=== PATIENT | female | born 1955 | race Caucasian/White ===

== ENCOUNTER 2021-12-27 19:24 | Emergency (ER) | payer OTHER ==
--- OUTSIDE RECORDS SUMMARY | 2021-12-27 19:29 | XMS REPORT | Continuity of Care Document ---
:1955 Author Organization [facility] t Address [address] [place] [address] Care Team Providers Name Role Phone [phone] Primary Care Physician Unavailable SKIP DAVID Attending Clinician Unavailable Skip David MD Attending Clinician KAT VEGA Attending Clinician Unavailable Payers Payer Name Policy Type Policy Number Effective Date Expiration Date S [place] [employer] MANAGED [id number] 2021 MEDICARE PPO-CHENG 00:00:00 [employer]ET[employer] MEDICARE PPO [id number] 2021 00:00:00 Problems Condition Condition Condition Status Onset Resolution Last Treating Co mments Source Name Details Category Date Date Treatment Clinician Date HTN HTN Disease Active 2014-05 [facility] (hypertens (hypertens 06-23 it y of ion) ion) 00:00: [place] 00 [facility] Anxiety Anxiety Disease Active 2014-05 Univers 06-23 ity of 00:00: [place] 00 [facility] Hyperchole Hyperchole Disease Active 2014-05 U nivers sterolemia sterolemia 11 it y of 00:00: [place] 00 [facility] Allergies, Adverse Reactions, Alerts Allergy Allergy Status Severity Reaction(s) Onset Inactive Treating Comm ents Source Name Type Date Date Clinician Hydrocod Propensi Active Rash [place] Univ ers one ty to 2-02 ity of Bitartra adverse 00:00: [place] te reaction 00 Medical s [facility] HYDROCOD DRUG Active Rash Univers ONE INGREDI 06-14 ity of BITARTRA 00:00: [place] TE 00 Medical Branch ESCITALO DRUG Active Palpitations 2014-05 Un terrence PRAM INGREDI 2-11 ity of OXALATE 00:00: [place] 00 [facility] Escitalo Propensi Active Palpitations 2014-05 Univers pram ty to 2-11 ity of Oxalate adverse 00:00: [place] reaction 00 Medical s [facility] Social History Social Habit Start Date Stop Date Quantity Comments Source Exposure to 2021-09-04 2021-09-14 Not sure [facility] SARS-CoV-2 (event) 00:00:00 07:48:00 Medica l Branch Alcohol intake 2021-09-14 2021-09-14 0 /d [facility] 00:00:00 00:00:00 Medical Branch Tobacco use and 2015-04-25 2015-04-25 Never used [facility] exposure 00:00:00 00:00:00 Medical Branch Sex [birth year] [facility] 00:00:00 00:00:00 Medical Branch Smoking Status Start Date Stop Date Source Never smoker [facility] Medications Ordered Filled Start Stop Current Ordering Indication Dosage Frequency Signature Comments Components Source Medication Medication Date Date Medication? Clinician (SIG) Name Name carvedilol Yes 25mg Take 25 mg U nivers (COREG) 25 4-07 by mouth 2 ity of mg tablet 08:36: (two) [place] 29 times Medical daily with Branch meals. valsartan Yes 320mg Take 320 Uni vers (DIOVAN) 4-07 mg by ity of 320 mg 08:36: mouth [place] tablet 29 daily. Medical Branch SERTraline Yes [id number] 50mg Take 1 U nivers 50 mg 4-07 tablet by ity of tablet 00:00: mouth [place] 00 daily. Medical Branch amLODIPine Yes 2.5mg Take 2.5 Un terrence 2.5 mg 1-03 mg by ity of tablet 00:00: mouth [place] 00 daily. Medical Branch atorvastati Yes 10mg Take 10 mg Univers n 10 mg 8-05 by mouth ity of tablet 00:00: daily. 00 Medical Branch Immunizations Ordered Filled Immunization Date Status Comments Sourc e Immunization Name Name Influenza High Dose 2021-02-22 Completed Unive rsity of 00:00:00 [facility] SARS-COV-2 COVID-19 2020-07-16 Completed Unive rsity of MODERNA VACCINE 00:00:00 [facility] SARS-COV-2 COVID-19 2020-06-18 Completed Unive rsity of MODERNA VACCINE 00:00:00 [facility] Influenza High Dose 2020-02-17 Completed Unive rsity of 00:00:00 [facility] Influenza High Dose 2020-02-12 Completed Unive rsity of Quad 00:00:00 [facility] Influenza Virus 2019-02-17 Completed Universit y of Vaccine [place] .5 mL 00:00:00 [facility] 6+ MO [place] Influenza Virus 2017-02-18 Completed Universit y of Vaccine 00:00:00 [facility] Vital Signs Vital Name Observation Time Observation Value Comments Source Systolic blood 2021-09-14 13:10:00 160 mm[Hg] Univer sity of pressure [facility] Diastolic blood 2021-09-14 13:10:00 91 mm[Hg] Unive rsity of pressure [facility] Heart rate 2021-09-14 13:10:00 58 /min [facility] Respiratory rate 2021-09-14 13:10:00 18 /[facility] Body height 2021-09-14 12:54:00 165.1 cm [facility] Body weight 2021-09-14 12:54:00 74.345 kg [facility] BMI 2021-09-14 12:54:00 27.27 kg/m2 [facility] Procedures This patient has no known procedures. Encounters Start End Encounter Admission Attending Care Care Encounter Source Date/Time Date/Time Type Type Clinicians Facility Department ID 2021-09-14 2021-09-14 Outpatient R [facility] [id number] Univers 08:23:47 23:59:00 SKIP teran [facility] 2021-09-14 2021-09-14 Office ZAIDA David [id number] Univers 08:00:00 08:54:37 Visit Skip [facility] [id number] it y of [place] [id number] Roman as AIMEE?BLEA [id number] Nd jennifer [address] MEDICAL OFFICE BUILDING 2021-06-08 2021-06-08 Outpatient TRINIDAD VEGA MDA MDA [id number] 11:23:08 13:48:45 KATSE Toño vu 2021-06-08 2021-06-08 Outpatient TRINIDAD HERRING MDA [id number] 10:11:29 10:11:29 Toño vu Results This patient has no known results.
[2021-12-27 20:08] LABS: Absolute Lymphocytes (CBC) 2.6 K/uL (0.7-4.9); Lymphocytes % 40.5 % (15.3-44.8); MCV 92.4 fL (80-100); MPV 10.2 fL (7.6-11.3); RBC Red Blood Cell Count 4.44 M/uL (3.86-4.86)
--- NOTE | 2021-12-27 20:11 | RAD REPORT ---
EXAM DESCRIPTION: CT - Head Brain Wo Cont - 12/27/2021 8:03 pm CLINICAL HISTORY: headache, elevated blood pressure COMPARISON: No comparisons TECHNIQUE: Axial 5 mm thick images of the head were obtained without IV contrast. All CT scans are performed using dose optimization technique as appropriate and may include automated exposure control or mA/KV adjustment according to patient size. FINDINGS: No intracranial hemorrhage, mass, edema or shift of mid-line structures. No acute infarcti on changes seen. No abnormal extra-axial fluid collections. Ventricles are normal. Mastoid air cells and visualized portions of the paranasal sinuses are clear. No acute bony findings. IMPRESSION: Negative non-contrast CT head examination.
[2021-12-27 20:12] LABS: Protime INR 1.1
[2021-12-27] MEDS ORDERED: cloNIDine HCL 0.1 MG TAB ONE (20:16)
[2021-12-27 20:23] LABS: SARS-CoV-2 Antigen Rapid Res Negative (Negative)
[2021-12-27 20:28] LABS: ALT/SGPT 28 U/L (12-78); AST/SGOT 17 U/L (15-37); Albumin 3.7 g/dL (3.4-5.0); Alkaline Phosphatase 75 U/L (45-117); BUN Blood Urea Nitrogen 16 mg/dL (7-18); Bicarbonate 27 mmol/L (21-32); Bilirubin Total 0.3 mg/dL (0.2-1.0); Glomerular Filtration Rate 58 ml/min (=/>90); Glucose Level 137 mg/dL (74-106); Magnesium 2.2 mg/dL (1.8-2.4); NT PRO-BNP 139 pg/mL (<125); Potassium 3.5 mmol/L (3.5-5.1); Sodium Level 142 mmol/L (136-145)
[2021-12-27 20:37] LABS: Bilirubin Direct < 0.1 mg/dL (0-0.2)
--- NOTE | 2021-12-27 21:37 | RAD REPORT ---
EXAM DESCRIPTION: RAD - Chest Single View - 12/27/2021 8:54 pm CLINICAL HISTORY: chest tightness COMPARISON: None TECHNIQUE: AP portable chest image was obtained 12/27/2021 8:54 pm . FINDINGS: Lungs are clear. Heart and vasculature are normal. No measurable pleural effusion and no p neumothorax. No acute bony abnormality seen. No acute aortic findings suspected. Hiatal hernia is lik mignon present. IMPRESSION: No acute cardiopulmonary process.
--- NOTE | 2021-12-27 22:11 | EDPHYS ---
Physician Documentation [facility] Name: Toya Thompson Age: 66 yrs Sex: Female : 1955 Arrival Date: 12/27/2021 Time: 19:29 Bed 3 Private MD: ED Physician David Rocha HPI: 12/27 19:35 This 66 yrs old Female presents to ER via Ambulatory with complaints of High Blood jmm Pressure, Chest Tightness, Numbness Of Arm, Headache, Nausea. 19:35 The patient has elevated blood pressure and discovered this at home. Onset: The jmm symptoms/episode began/occurred gradually, this morning. Modifying factors: The symptoms are alleviated by. This is a 66-year-old female with history of hypertension that presents emerged department with complaints of fatigue, headache, intermittent episodes of numbness to her left arm. Patient attributes this to elevated blood pressure. States her blood pressure is normally around 130 systolic. Denies chest pain. Patient states this is occurred previously over the past few months with elevated episodes of blood pressure. Denies unilateral weakness, difficulty with her speech.. Historical: - Allergies: 19:37 No Known Allergies; kd3 - Home Meds: 19:35 Lorazepam Oral [Active]; kd3 19:37 carvedilol oral [Active]; kd3 - PMHx: 19:37 Hypertensive disorder; kd3 - Immunization history:: Adult Immunizations up to date, Client reports receiving the 2nd dose of the Covid vaccine. - Social history:: Smoking status: Patient denies any tobacco usage or history of. ROS: 19:35 Constitutional: Positive for fatigue. jmm 19:35 Neuro: Positive for headache, numbness. 19:35 All other systems are negative. Exam: 19:35 Constitutional: This is a well developed, well nourished patient who is awake, alert, jmm and in no acute distress. Head/Face: atraumatic. Eyes: EOMI, no conjunctival erythema appreciated ENT: Moist Mucus Membranes Neck: Trachea midline, Supple Chest/axilla: Normal chest wall appearance and motion. Cardiovascular: Regular rate and rhythm. No edema appreciated Respiratory: Normal respirations, no respiratory distress appreciated Abdomen/GI: Non distended Back: Normal ROM Skin: General appearance color normal MS/ Extremity: Moves all extremities, no obvious deformities appreciated, no edema noted to the lower extremities Neuro: Awake and alert Psych: Behavior is normal, Mood is normal, Patient is cooperative and pleasant 20:41 ECG was reviewed by the Attending Physician. [facility] Vital Signs: 19:31 BP 208 / 98; Pulse 71; Resp 16; Pulse Ox 98% ; kd3 19:38 Temp 98.3(O); Weight 72.57 kg; Height 5 ft. 6 in. (167.64 cm); Pain 0/10; kd3 20:00 BP 153 / 120; Pulse 69; Resp 14 S; Temp 98(O); Pulse Ox 100% on R/A; Weight 72.57 kg aa9 (R); Height 5 ft. 6 in. (167.64 cm) (R); 20:07 BP 160 / 97; Pulse 71; aa9 20:50 BP 175 / 88; Pulse 63; aa9 20:50 BP 175 / 88; Pulse 63; aa9 21:41 BP 159 / 83; Pulse 58; Resp 16; Pulse Ox 96% on R/A; ld1 22:17 BP 152 / 76; Pulse 58; Resp 17 S; Pulse Ox 97% on R/A; aa9 20:00 Body Mass Index 25.82 (72.57 kg, 167.64 cm) aa9 MDM: 19:37 Patient medically screened. [facility] 22:05 Data reviewed: vital signs, nurses notes. Counseling: I had a detailed discussion with [facility] the patient and/or guardian regarding: the historical points, exam findings, and any diagnostic results supporting the discharge/admit diagnosis, the need for outpatient follow up, to return to the emergency department if symptoms worsen or persist or if there are any questions or concerns that arise at home. 22:05 Counseling: I had a detailed discussion with the patient and/or guardian regarding: lab [facility] results, radiology results. 22:05 Refusal of service: The patient/guardian displays adequate decision making capability [facility] and despite a detailed discussion of alternatives, benefits, risks, and consequences refuses: Admission to the hospital for further work-up and treatment. ED course: I discussed with the patient the need for observation possible MRI for further evaluation of left arm numbness. Patient declined and stated that she will follow-up with her PCP/neurology.. 12/27 19:37 Order name: Basic Metabolic Panel; Complete Time: 20:38 [facility] 12/27 19:37 Order name: CBC with Diff; Complete Time: 20:26 [facility] 12/27 19:37 Order name: LFT's; Complete Time: 20:38 [facility] 12/27 19:37 Order name: Magnesium; Complete Time: 20:38 [facility] 12/27 19:37 Order name: NT PRO-BNP; Complete Time: 20:38 [facility] 12/27 19:37 Order name: PT-INR; Complete Time: 20:24 [facility] 12/27 19:37 Order name: Troponin HS; Complete Time: 20:38 [facility] 12/27 19:37 Order name: XRAY Chest (1 view); Complete Time: 21:39 [facility] 12/27 19:37 Order name: EKG; Complete Time: 19:38 [facility] 12/27 19:37 Order name: Cardiac monitoring; Complete Time: 19:46 [facility] 12/27 19:38 Order name: CT Head Brain wo Cont; Complete Time: 20:24 [facility] 12/27 19:38 Order name: SARS RAPID; Complete Time: 20:24 [facility] 12/27 19:58 Order name: Glucose, Ancillary Testing; Complete Time: 19:58 [facility] 12/27 19:37 Order name: EKG - Nurse/Tech; Complete Time: 19:45 [facility] 12/27 19:37 Order name: IV Saline Lock; Complete Time: 20:05 [facility] 12/27 19:37 Order name: Labs collected and sent; Complete Time: 20:05 [facility] 12/27 19:37 Order name: O2 Per Protocol; Complete Time: 19:45 [facility] 12/27 19:37 Order name: O2 Sat Monitoring; Complete Time: 19:45 jmm EC:41 Rate is 62 beats/min. Rhythm is regular. QRS Steen is Normal. WA interval is normal. QRS jmm interval is normal. QT interval is normal. No Q waves. T waves are Flattened in lead aVL. No ST changes noted. Reviewed by me. Administered Medications: 20:13 Drug: cloNIDine 0.1 mg Route: PO; aa9 20:50 Follow up: BP 175 / 88; Pulse 63 bpm aa9 20:51 Follow up: Response: No adverse reaction aa9 Disposition: 12/28 03:32 Co-signature as Attending Physician, David Rocha MD. rn Disposition Summary: 12/27/21 22:07 Discharge Ordered Location: Home jmm Condition: Stable jmm Diagnosis - Elevated Blood Pressure jmm - Paresthesia of the skin jmm Followup: jmm - With: Private Physician - When: Tomorrow - Reason: Recheck today's complaints, Continuance of care, Re-evaluation by your physician Discharge Instructions: - Discharge Summary Sheet jmm - Hypertension, Adult jmm - Paresthesia jmm Forms: - Medication Reconciliation Form jmm - Thank You Letter jmm - Antibiotic Education jmm - Prescription Opioid Use jmm Signatures: Dispatcher [employer] EDJaycob Bolanos PA PA jmm David Rocha MD MD rn Doucette, Kyli, RN RN kd3 Neema Sheriff RN RN aa9
--- NOTE | 2021-12-27 22:11 | ER ---
Nurse's Notes [facility] Name: Toya Thompson Age: 66 yrs Sex: Female : 1955 Arrival Date: 12/27/2021 Time: 19:29 Bed 3 Private MD: Diagnosis: Elevated Blood Pressure;Paresthesia of the skin Presentation: 12/27 19:31 Chief complaint: Patient states: My blood pressure is tammy high. I have felt fatigued kd3 and I've had some numbness in my left arm. I have also had a headache. the last time i took my blood pressure it was in the 200's. Chief complaint: Patient states: I do not really feel chest pain. Ebola Screen: No symptoms or risks identified at this time. Initial Sepsis Screen: Does the patient meet any 2 criteria? No. Patient's initial sepsis screen is negative. Does the patient have a suspected source of infection? No. Patient's initial sepsis screen is negative. Risk Assessment: Do you want to hurt yourself or someone else? Patient reports no desire to harm self or others. Onset of symptoms was December 27, 2021. 19:31 Method Of Arrival: Ambulatory kd3 19:31 Acuity: SHIV 3 kd3 19:36 Coronavirus screen: Vaccine status: Patient reports receiving the 2nd dose of the covid kd3 vaccine. 20:04 Care prior to arrival: Medication(s) given: ASA, 325 mg, for 8/10 headache, states it aa9 is now 3/10 pain. Triage Assessment: 19:36 General: Appears in no apparent distress. Behavior is calm, cooperative. Pain: Denies kd3 pain. Cardiovascular: Patient's skin is warm and dry. Historical: - Allergies: 19:37 No Known Allergies; kd3 - Home Meds: 19:35 Lorazepam Oral [Active]; kd3 19:37 carvedilol oral [Active]; kd3 - PMHx: 19:37 Hypertensive disorder; kd3 - Immunization history:: Adult Immunizations up to date, Client reports receiving the 2nd dose of the Covid vaccine. - Social history:: Smoking status: Patient denies any tobacco usage or history of. Screenin:39 Abuse screen: Denies threats or abuse. Denies injuries from another. Nutritional kd3 screening: No deficits noted. Tuberculosis screening: No symptoms or risk factors identified. Fall Risk None identified. Assessment: 20:00 General: Appears in no apparent distress. comfortable, Behavior is calm, cooperative. aa9 General: reports tightness on the left arm and dizziness . Pain: Complains of pain in headahe Pain currently is 3 out of 10 on a pain scale. Pain began 1 day ago. Vital Signs: 19:31 BP 208 / 98; Pulse 71; Resp 16; Pulse Ox 98% ; kd3 19:38 Temp 98.3(O); Weight 72.57 kg; Height 5 ft. 6 in. (167.64 cm); Pain 0/10; kd3 20:00 BP 153 / 120; Pulse 69; Resp 14 S; Temp 98(O); Pulse Ox 100% on R/A; Weight 72.57 kg aa9 (R); Height 5 ft. 6 in. (167.64 cm) (R); 20:07 BP 160 / 97; Pulse 71; aa9 20:50 BP 175 / 88; Pulse 63; aa9 20:50 BP 175 / 88; Pulse 63; aa9 21:41 BP 159 / 83; Pulse 58; Resp 16; Pulse Ox 96% on R/A; ld1 22:17 BP 152 / 76; Pulse 58; Resp 17 S; Pulse Ox 97% on R/A; aa9 20:00 Body Mass Index 25.82 (72.57 kg, 167.64 cm) aa9 ED Course: 19:29 Patient arrived in ED. jj6 19:31 Monik Yuan, RN is Primary Nurse. kd3 19:35 Triage completed. kd3 19:36 Inserted saline lock: 20 gauge in left antecubital area, using aseptic technique. Blood aa9 collected. 19:37 Jaycob Beard PA is PHCP. jmm 19:37 David Rocha MD is Attending Physician. jmm 19:39 Arm band placed on right wrist. kd3 19:39 Patient maintains SpO2 saturation greater than 95% on room air. kd3 20:03 Patient has correct armband on for positive identification. Adult w/ patient. Client aa9 placed on continuous cardiac and pulse oximetry monitoring. NIBP monitoring applied. 20:05 CT Head Brain wo Cont In Process Unspecified. EDMS 20:44 Door closed. Noise minimized. Warm blanket given. aa9 20:56 XRAY Chest (1 view) In Process Unspecified. EDMS 22:32 No provider procedures requiring assistance completed. IV discontinued, intact, as6 bleeding controlled, No redness/swelling at site. Pressure dressing applied. Administered Medications: 20:13 Drug: cloNIDine 0.1 mg Route: PO; aa9 20:50 Follow up: BP 175 / 88; Pulse 63 bpm aa9 20:51 Follow up: Response: No adverse reaction aa9 Medication: 22:32 VIS not applicable for this client. as6 Outcome: 22:07 Discharge ordered by . susan 22:32 Discharged to home ambulatory. as6 22:32 Condition: stable 22:32 Discharge instructions given to patient, Instructed on discharge instructions, follow up and referral plans. Demonstrated understanding of instructions, follow-up care. 22:33 Patient left the ED. as6 Signatures: Dispatcher [employer] EDMS Jaycob Beard PA PA jmm Dibbern, Lauren, RN RN ld1 Kortney Rand jj6 Chepe Faith RN RN as6 Monik Yuan, RN RN kd3 Neema Sheriff, RN RN aa9
[2021-12-28 01:15] VITALS: TEMP 98
[2021-12-28 01:23] VITALS: BP 152/76; O2SAT 97
--- NOTE | 2021-12-28 07:54 | EKG ---
Test Date: 2021-12-27 Test Time: 19:44:49 Toby Maker: DEEPIKA MEASUREMENT RESULTS: Intervals: Rate: 62 TN: 156 QRSD: 94 QT: 328 QTc: 332 [place]: P: 32 TN: 156 QRS: 19 T: 29 INTERPRETIVE STATEMENTS: Normal sinus rhythm Cannot rule out Anterior infarct, age undetermined Abnormal ECG No previous ECG available for comparison Electronically Signed On 12-28-21 07:53:11 CDT by Darrin Davis
== END 2021-12-27 22:33 | disposition home or self-care (01) ==
LOC: ER 19:24
DX: R20.2 Paresthesia of skin (principal); I10 Essential (primary) hypertension; Z20.822 Contact with and (suspected) exposure to COVID-19
CPT/HCPCS: 36415; 70450; 71045; 80048; 80076; 82947; 83735; 83880; 84484; 85025; 85610; 87811; 93005

== ENCOUNTER 2022-12-10 18:43 | Emergency (ER) | payer OTHER ==
--- OUTSIDE RECORDS SUMMARY | 2022-12-10 18:47 | XMS REPORT | Continuity of Care Document ---
:1955 Author Organization [facility] t Address [address] [place] [address] [address] [place] [address] Care Team Providers Name Role Phone [phone] Primary Care Physician Unavailable Simeon Thomas MD Attending Clinician SIMEON THOMAS Attending Clinician Unavailable Doctor Unassigned, [place] Attending Clinician Unavailable KAT VEGA Attending Clinician Unavailable JAY MASTERS Attending Clinician Unavailable Jay Masters MD Attending Clinician Lab, Ang - Db Attending Clinician Unavailable MARÍA DAHL Attending Clinician Unavailable María Armstrong Attending Clinician Lab, Adc Fam Pob I Attending Clinician Unavailable Payers Payer Name Policy Type Policy Number Effective Date Expiration Date S ines [employer] MEDICARE PPO [id number] 2021 00:00:00 Problems Condition Condition Condition Status Onset Resolution Last Treating Co mments Source Name Details Category Date Date Treatment Clinician Date HTN HTN Disease Active 2014-05 Univers (hypertens (hypertens 2 it y of ion) ion) 00:00: [place] [address] Medical Branch Anxiety Anxiety Disease Active 2014-05 Univers 2 ity of 00:00: [place] [address] Medical Branch Hyperchole Hyperchole Disease Active 2014-05 U nivers sterolemia sterolemia 11 it y of 00:00: [place] 00 Medical Branch Allergies, Adverse Reactions, Alerts Allergy Allergy Status Severity Reaction(s) Onset Inactive Treating Comm ents Source Name Type Date Date Clinician HYDROCOD DRUG Active Low Rash MD CHRISTINA BRODERICKI 06-14 Anderso BITARTRA 00:00: n TE 00 HYDROCOD DRUG Active Low Rash 2016-0 MD ONE INGREDI 2-02 Anderso BITARTRA 00:00: n TE 00 HYDROCOD DRUG Active Low Rash 2016-0 MD ONE INGREDI 2-02 Anderso BITARTRA 00:00: n TE 00 HYDROCOD DRUG Active Rash 2016-0 Univers ONE INGREDI 2-02 ity of BITARTRA 00:00: [place] TE 00 Medical Branch Hydrocod Propensi Active Rash 2015-0 [place] [facility] ers one ty to 2 ity of Bitartra adverse 00:00: [place] te reaction 00 Medical s Branch HYDROCOD DRUG Active Low Rash 2016-0 MD ONE INGREDI 2-02 Anderso BITARTRA 00:00: n TE 00 HYDROCOD DRUG Active Low Rash 2015-0 MD ONE INGREDI 2-02 Anderso BITARTRA 00:00: n TE 00 HYDROCOD DRUG Active Low Rash 2015-0 MD ONE INGREDI 2-02 Anderso BITARTRA 00:00: n TE 00 ESCITALO DRUG Active Low Palpitations 2014-05 PRAM INGREDI 2-11 Anderso OXALATE 00:00: n 00 ESCITALO DRUG Active Low Palpitations 2014-05 MD PRAM INGREDI 2-11 Anderso OXALATE 00:00: n 00 ESCITALO DRUG Active Low Palpitations 2014-05 MD PRAM INGREDI 2-11 Anderso OXALATE 00:00: n 00 ESCITALO DRUG Active Low Palpitations 2014-05 MD PRAM INGREDI 2-11 Anderso OXALATE 00:00: n 00 ESCITALO DRUG Active Low Palpitations 2014-05 PRAM INGREDI 2-11 Anderso OXALATE 00:00: n 00 ESCITALO DRUG Active Low Palpitations 2014-05 PRAM INGREDI 2-11 Anderso OXALATE 00:00: n 00 ESCITALO DRUG Active Palpitations 2014-[address]rence PRAM INGREDI 2-11 ity of OXALATE 00:00: [place] 00 Medical Branch Escitalo Propensi Active Palpitations 2014-05 Univers pram ty to 2-11 ity of Oxalate adverse 00:00: [place] reaction 00 Medical s Branch Social History Social Habit Start Date Stop Date Quantity Comments Source Exposure to 2022-09-21 2022-10-01 Not sure University of SARS-CoV-2 00:00:00 13:27:00 [place] Medical (event) Branch Alcohol intake 2022-10-01 2022-10-01 0 /d University 00:00:00 00:00:00 [facility] Tobacco use and 2015-04-25 2015-04-25 Smokeless tobacco Un iversity of exposure 00:00:00 00:00:00 non-user [facility] Sex [birth year] Universit y of 00:00:00 00:00:00 [facility] Smoking Status Start Date Stop Date Source Never smoked tobacco [facility] Medications Ordered Filled Start Stop Current Ordering Indication Dosage Frequency Signature Comments Components Source Medication Medication Date Date Medication? Clinician (SIG) Name Name amLODIPine Yes 10mg Take 1 Unive rs 10 mg 5-22 tablet by ity of tablet 13:52: mouth in [place] [address] the Medical morning. Branch amLODIPine Yes 10mg Take 1 Unive rs 10 mg 5-22 tablet by ity of tablet 13:52: mouth in [place] [address] the Medical morning. Branch SERTraline Yes [id number] 50mg Take 1 U nivers 50 mg 5-22 tablet by ity of tablet 00:00: mouth in [place] 00 the Medical morning. Branch SERTraline Yes [id number] 50mg Take 1 U nivers 50 mg 5-22 tablet by ity of tablet 00:00: mouth in [place] 00 the Medical morning. Branch SERTraline Yes [id number] TAKE 1 U nivers 50 mg 4-27 TABLET BY ity of tablet 00:00: MOUTH [place] 00 EVERY DAY Medical Branch SERTraline 0 Yes [id number] TAKE 1 U nivers 50 mg 4-27 TABLET BY ity of tablet 00:00: MOUTH [place] 00 EVERY DAY Medical Branch SERTraline Yes [id number] TAKE 1 U nivers 50 mg 4-27 TABLET BY ity of tablet 00:00: MOUTH [place] 00 EVERY DAY Medical Branch SERTraline 2023- No [id number] TAKE 1 Univers 50 mg 4-27 05-22 TABLET BY ity of tablet 00:00: 00:00 MOUTH [place] 00 :00 EVERY DAY Medical Branch SERTraline 2023- No [id number] TAKE 1 Univers 50 mg 4-27 05-22 TABLET BY ity of tablet 00:00: 00:00 MOUTH [place] 00 :00 EVERY DAY Medical Branch SERTraline 2022-0 Yes [id number] TAKE 1 U nivers 50 mg 4-04 TABLET BY ity of tablet 00:00: MOUTH [place] 00 EVERY DAY Medical Branch SERTraline 2022-0 3- No [id number] TAKE 1 Univers 50 mg 4-04 -27 TABLET BY ity of tablet 00:00: 00:00 MOUTH [place] 00 :00 EVERY DAY Medical Branch carvedilol 2021-0 Yes 25mg Take 25 mg U nivers (COREG) 25 4-07 by mouth 2 ity of mg tablet 08:36: (two) [place] 29 times Medical daily with Branch meals. valsartan 2-0 Yes 320mg Take 320 Uni vers (DIOVAN) 4-07 mg by ity of 320 mg 08:36: mouth [place] tablet 29 daily. Medical Branch carvedilol 2021-0 Yes 25mg Take 25 mg U nivers (COREG) 25 4-07 by mouth 2 ity of mg tablet 08:36: (two) [place] 29 times Medical daily with Branch meals. valsartan 2-0 Yes 320mg Take 320 Uni vers (DIOVAN) 4-07 mg by ity of 320 mg 08:36: mouth [place] tablet 29 daily. Medical Branch carvedilol 2021-0 Yes 25mg Take 25 mg U nivers (COREG) 25 4-07 by mouth 2 ity of mg tablet 08:36: (two) [place] 29 times Medical daily with Branch meals. valsartan 2-0 Yes 320mg Take 320 Uni vers (DIOVAN) 4-07 mg by ity of 320 mg 08:36: mouth [place] tablet 29 daily. Medical Branch carvedilol 2-0 Yes 25mg Take 25 mg U nivers (COREG) 25 4-07 by mouth 2 ity of mg tablet 08:36: (two) [place] 29 times Medical daily with Branch meals. valsartan 2022-0 Yes 320mg Take 320 Uni vers (DIOVAN) 4-07 mg by ity of 320 mg 08:36: mouth [place] tablet 29 daily. Medical Branch carvedilol 2-0 Yes 25mg Take 25 mg U nivers (COREG) 25 4-07 by mouth 2 ity of mg tablet 08:36: (two) [place] 29 times Medical daily with Branch meals. valsartan 2022-0 Yes 320mg Take 320 Uni vers (DIOVAN) 4-07 mg by ity of 320 mg 08:36: mouth [place] tablet 29 daily. Medical Branch carvedilol 2022-0 Yes 25mg Take 25 mg U nivers (COREG) 25 4-07 by mouth 2 ity of mg tablet 08:36: (two) [place] 29 times Medical daily with Branch meals. valsartan 2022-0 Yes 320mg Take 320 Uni vers (DIOVAN) 4-07 mg by ity of 320 mg 08:36: mouth [place] tablet 29 daily. Medical Branch carvedilol 2022-0 Yes 25mg Take 25 mg U nivers (COREG) 25 4-07 by mouth 2 ity of mg tablet 08:36: (two) [place] 29 times Medical daily with Branch meals. valsartan 2022-0 Yes 320mg Take 320 Uni vers (DIOVAN) 4-07 mg by ity of 320 mg 08:36: mouth [place] tablet 29 daily. Medical Branch carvedilol 2022-0 Yes 25mg Take 25 mg U nivers (COREG) 25 4-07 by mouth 2 ity of mg tablet 08:36: (two) [place] 29 times Medical daily with Branch meals. valsartan 2022-0 Yes 320mg Take 320 Uni vers (DIOVAN) 4-07 mg by ity of 320 mg 08:36: mouth [place] tablet 29 daily. Medical Branch carvedilol 2-0 Yes 25mg Take 25 mg U nivers (COREG) 25 4-07 by mouth 2 ity of mg tablet 08:36: (two) [place] 29 times Medical daily with Branch meals. valsartan 2022-0 Yes 320mg Take 320 Uni vers (DIOVAN) 4-07 mg by ity of 320 mg 08:36: mouth [place] tablet 29 daily. Medical Branch carvedilol 2022-0 Yes 25mg Take 25 mg U nivers (COREG) 25 4-07 by mouth 2 ity of mg tablet 08:36: (two) [place] 29 times Medical daily with Branch meals. valsartan 2022-0 Yes 320mg Take 320 Uni vers (DIOVAN) 4-07 mg by ity of 320 mg 08:36: mouth [place] tablet 29 daily. Medical Branch SERTraline 2022-0 Yes [id number] 50mg Take 1 U nivers 50 mg 4-07 tablet by ity of tablet 00:00: mouth [place] 00 daily. Medical Branch SERTraline 2021-0 Yes [id number] 50mg Take 1 U nivers 50 mg 4-07 tablet by ity of tablet 00:00: mouth [place] 00 daily. Medical Branch SERTraline 2021-0 Yes [id number] 50mg Take 1 U nivers 50 mg 4-07 tablet by ity of tablet 00:00: mouth [place] 00 daily. Medical Branch SERTraline 0 Yes [id number] 50mg Take 1 U nivers 50 mg 4-07 tablet by ity of tablet 00:00: mouth [place] 00 daily. Medical Branch SERTraline 2023- No [id number] 50mg Take 1 Univers 50 mg 4-07 04-04 tablet by ity of tablet 00:00: 00:00 mouth [place] 00 :00 daily. Medical Branch amLODIPine Yes 2.5mg Take 2.5 Un terrence 2.5 mg 1-03 mg by ity of tablet 00:00: mouth [place] 00 daily. Medical Branch amLODIPine 0 Yes 2.5mg Take 2.5 Un terrence 2.5 mg 1-03 mg by ity of tablet 00:00: mouth [place] 00 daily. Medical Branch amLODIPine 0 Yes 2.5mg Take 2.5 Un terrence 2.5 mg 1-03 mg by ity of tablet 00:00: mouth [place] 00 daily. Medical Branch amLODIPine 0 Yes 2.5mg Take 2.5 Un terrence 2.5 mg 1-03 mg by ity of tablet 00:00: mouth [place] 00 daily. Medical Branch amLODIPine 2021-0 Yes 2.5mg Take 2.5 Un terrence 2.5 mg 1-03 mg by ity of tablet 00:00: mouth [place] 00 daily. Medical Branch amLODIPine 2021-0 Yes 2.5mg Take 2.5 Un terrence 2.5 mg 1-03 mg by ity of tablet 00:00: mouth [place] 00 daily. Medical Branch amLODIPine 2021-0 Yes 2.5mg Take 2.5 Un terrence 2.5 mg 1-03 mg by ity of tablet 00:00: mouth [place] 00 daily. Medical Branch amLODIPine Yes 2.5mg Take 2.5 Un terrence 2.5 mg 1-03 mg by ity of tablet 00:00: mouth [place] 00 daily. Medical Branch amLODIPine 2022- No 2.5mg Take 2.5 U nivers 2.5 mg 1-03 05-22 mg by ity of tablet 00:00: 00:00 mouth [place] 00 :00 daily. Medical Branch amLODIPine 0 2022- No 2.5mg Take 2.5 U nivers 2.5 mg 1-03 05-22 mg by ity of tablet 00:00: 00:00 mouth [place] 00 :00 daily. Medical Branch atorvastati Yes 10mg Take 10 mg Univers n 10 mg 8-05 by mouth ity of tablet 00:00: daily. Medical Branch atorvastati Yes 10mg Take 10 mg Univers n 10 mg 8-05 by mouth ity of tablet 00:00: daily. Medical Branch atorvastati Yes 10mg Take 10 mg Univers n 10 mg 8-05 by mouth ity of tablet 00:00: daily. Medical Branch atorvastati Yes 10mg Take 10 mg Univers n 10 mg 8-05 by mouth ity of tablet 00:00: daily. Medical Branch atorvastati Yes 10mg Take 10 mg Univers n 10 mg 8-05 by mouth ity of tablet 00:00: daily. Medical Branch atorvastati Yes 10mg Take 10 mg Univers n 10 mg 8-05 by mouth ity of tablet 00:00: daily. Medical Branch atorvastati Yes 10mg Take 10 mg Univers n 10 mg 8-05 by mouth ity of tablet 00:00: daily. Medical Branch atorvastati Yes 10mg Take 10 mg Univers n 10 mg 8-05 by mouth ity of tablet 00:00: daily. [facility] Branch atorvastati Yes 10mg Take 10 mg Univers n 10 mg 8-05 by mouth ity of tablet 00:00: daily. [facility] Branch atorvastati Yes 10mg Take 10 mg Univers n 10 mg 8-05 by mouth ity of tablet 00:00: daily. [place] [address] Medical Branch Immunizations Ordered Filled Immunization Date Status Comments [facility] e Immunization Name Name Influenza High Dose 2021-02-22 Completed Unive rsity of 00:00:00 [place] [facility] Influenza High Dose 2021-02-22 Completed Unive rsity of 00:00:00 [place] [facility] Influenza High Dose 2021-02-22 Completed Unive rsity of 00:00:00 [place] [facility] Influenza High Dose 2021-02-22 Completed Unive rsity of 00:00:00 [place] [facility] Influenza High Dose 2021-02-22 Completed Unive rsity of 00:00:00 [place] [facility] Influenza High Dose 2021-02-22 Completed Unive rsity of 00:00:00 [place] [facility] Influenza High Dose 2021-02-22 Completed Unive rsity of 00:00:00 [facility] Branch Influenza High Dose 2021-02-22 Completed Unive rsity of 00:00:00 [place] [facility] Branch Influenza High Dose 2021-02-22 Completed Unive rsity of 00:00:00 [facility] Influenza High Dose 2021-02-22 Completed Unive rsity of 00:00:00 [facility] SARS-COV-2 COVID-19 2020-07-16 Completed Unive rsity of MODERNA VACCINE 00:00:00 [facility] ical Branch SARS-COV-2 COVID-19 2020-07-16 Completed Unive rsity of MODERNA 12+ YRS 00:00:00 [facility] ical VACCINE Branch SARS-COV-2 COVID-19 2020-07-16 Completed Unive rsity of MODERNA 12+ YRS 00:00:00 [facility] ical VACCINE Branch SARS-COV-2 COVID-19 2020-07-16 Completed Unive rsity of MODERNA 12+ YRS 00:00:00 [facility] ical VACCINE Branch SARS-COV-2 COVID-19 2020-07-16 Completed Unive rsity of MODERNA 12+ YRS 00:00:00 [facility] ical VACCINE Branch SARS-COV-2 COVID-19 2020-07-16 Completed Unive rsity of MODERNA 12+ YRS 00:00:00 [facility] ical VACCINE Branch SARS-COV-2 COVID-19 2020-07-16 Completed Unive rsity of MODERNA 12+ YRS 00:00:00 [place] Med ical VACCINE Branch SARS-COV-2 COVID-19 2020-07-16 Completed Unive rsity of MODERNA 12+ YRS 00:00:00 [place] Med ical VACCINE Branch SARS-COV-2 COVID-19 2020-07-16 Completed Unive rsity of MODERNA 12+ YRS 00:00:00 [place] Med ical VACCINE Branch SARS-COV-2 COVID-19 2020-07-16 Completed Unive rsity of MODERNA 12+ YRS 00:00:00 [place] Med ical VACCINE Branch SARS-COV-2 COVID-19 2020-06-18 Completed Unive rsity of MODERNA VACCINE 00:00:00 [place] Med ical Branch SARS-COV-2 COVID-19 2020-06-18 Completed Unive rsity of MODERNA 12+ YRS 00:00:00 [place] Med ical VACCINE Branch SARS-COV-2 COVID-19 2020-06-18 Completed Unive rsity of MODERNA 12+ YRS 00:00:00 [place] Med ical VACCINE Branch SARS-COV-2 COVID-19 2020-06-18 Completed Unive rsity of MODERNA 12+ YRS 00:00:00 [place] Med ical VACCINE Branch SARS-COV-2 COVID-19 2020-06-18 Completed Unive rsity of MODERNA 12+ YRS 00:00:00 [place] Med ical VACCINE Branch SARS-COV-2 COVID-19 2020-06-18 Completed Unive rsity of MODERNA 12+ YRS 00:00:00 [place] Med ical VACCINE Branch SARS-COV-2 COVID-19 2020-06-18 Completed Unive rsity of MODERNA 12+ YRS 00:00:00 [place] Med ical VACCINE Branch SARS-COV-2 COVID-19 2020-06-18 Completed Unive rsity of MODERNA 12+ YRS 00:00:00 [place] Med ical VACCINE Branch SARS-COV-2 COVID-19 2020-06-18 Completed Unive rsity of MODERNA 12+ YRS 00:00:00 [place] Med ical VACCINE Branch SARS-COV-2 COVID-19 2020-06-18 Completed Unive rsity of MODERNA 12+ YRS 00:00:00 [place] Med ical VACCINE Branch Influenza High Dose 2020-02-17 Completed Unive rsity of 00:00:00 [facility] Influenza High Dose 2020-02-17 Completed Unive rsity of 00:00:00 [place] [facility] Branch Influenza High Dose 2020-02-17 Completed Unive rsity of 00:00:00 [facility] Branch Influenza High Dose 2020-02-17 Completed Unive rsity of 00:00:00 [facility] Influenza High Dose 2020-02-17 Completed Unive rsity of 00:00:00 [facility] Influenza High Dose 2020-02-17 Completed Unive rsity of 00:00:00 [place] [facility] Branch Influenza High Dose 2020-02-17 Completed Unive rsity of 00:00:00 [facility] Influenza High Dose 2020-02-17 Completed Unive rsity of 00:00:00 [facility] Influenza High Dose 2020-02-17 Completed Unive rsity of 00:00:00 [facility] Influenza High Dose 2020-02-17 Completed Unive rsity of 00:00:00 [facility] Influenza High Dose 2020-02-12 Completed Unive rsity of [place] 00:00:00 [facility] Influenza High Dose 2020-02-12 Completed Unive rsity of [place] 00:00:00 [facility] Influenza High Dose 2020-02-12 Completed Unive rsity of [place] 00:00:00 [facility] Influenza High Dose 2020-02-12 Completed Unive rsity of [place] 00:00:00 [facility] Influenza High Dose 2020-02-12 Completed Unive rsity of [place] 00:00:00 [facility] Influenza High Dose 2020-02-12 Completed Unive rsity of [place] 00:00:00 [facility] Influenza High Dose 2020-02-12 Completed Unive rsity of [place] 00:00:00 [place] [facility] Branch Influenza High Dose 2020-02-12 Completed Unive rsity of [place] 00:00:00 [facility] Influenza High Dose 2020-02-12 Completed Unive rsity of [place] 00:00:00 [facility] Branch Influenza High Dose 2020-02-12 Completed Unive rsity of [place] 00:00:00 [facility] Influenza Virus 2019-02-17 Completed Universit y of Vaccine [place] .5 mL 00:00:00 [place] [facility] IM 6+ MO Branch Influenza Virus 2019-02-17 Completed Universit y of Vaccine [place] .5 mL 00:00:00 [place] Medical IM 6+ MO Branch Influenza Virus 2019-02-17 Completed Universit y of Vaccine [place] .5 mL 00:00:00 [place] Medical IM 6+ MO Branch Influenza Virus 2019-02-17 Completed Universit y of Vaccine [place] .5 mL 00:00:00 [place] Medical IM 6+ MO Branch Influenza Virus 2019-02-17 Completed Universit y of Vaccine [place] .5 mL 00:00:00 [place] Medical IM 6+ MO Branch Influenza Virus 2019-02-17 Completed Universit y of Vaccine [place] .5 mL 00:00:00 [place] Medical IM 6+ MO Branch Influenza Virus 2019-02-17 Completed Universit y of Vaccine [place] .5 mL 00:00:00 [place] Medical IM 6+ MO Branch Influenza Virus 2019-02-17 Completed Universit y of Vaccine [place] .5 mL 00:00:00 [place] Medical IM 6+ MO Branch Influenza Virus 2019-02-17 Completed Universit y of Vaccine [place] .5 mL 00:00:00 [place] Medical 6+ MO Branch Influenza Virus 2019-02-17 Completed Universit y of Vaccine [place] .5 mL 00:00:00 [facility] 6+ MO Branch Influenza Virus 2017-02-18 Completed Universit y of Vaccine 00:00:00 [facility] Influenza Virus 2017-02-18 Completed Universit y of Vaccine 00:00:00 [facility] Influenza Virus 2017-02-18 Completed Universit y of Vaccine 00:00:00 [facility] Influenza Virus 2017-02-18 Completed Universit y of Vaccine 00:00:00 [facility] Influenza Virus 2017-02-18 Completed Universit y of Vaccine 00:00:00 [facility] Influenza Virus 2017-02-18 Completed Universit y of Vaccine 00:00:00 [facility] Influenza Virus 2017-02-18 Completed Universit y of Vaccine 00:00:00 [facility] Influenza Virus 2017-02-18 Completed Universit y of Vaccine 00:00:00 [facility] Influenza Virus 2017-02-18 Completed Universit y of Vaccine 00:00:00 [facility] Influenza Virus 2017-02-18 Completed Universit y of Vaccine 00:00:00 [facility] Vital Signs Vital Name Observation Time Observation Value Comments Source Systolic blood 2022-10-01 18:45:00 140 mm[Hg] Univer sity of pressure [facility] Diastolic blood 2022-10-01 18:45:00 82 mm[Hg] Unive rsity of pressure [facility] Body temperature 2022-10-01 18:44:00 37.22 Angie Univ ersity of [place] [facility] Body height 2022-10-01 18:44:00 167.6 cm Universi ty of [place] [facility] Body weight 2022-10-01 18:44:00 74.844 kg Universi ty of [place] [facility] Branch BMI 2022-10-01 18:44:00 26.63 kg/m2 Universi ty of [place] [facility] Systolic blood 2021-09-14 13:10:00 160 mm[Hg] Univer sity of pressure [place] [facility] Diastolic blood 2021-09-14 13:10:00 91 mm[Hg] Unive rsity of [facility] Heart rate 2021-09-14 13:10:00 58 /min Universi ty of [facility] Respiratory rate 2021-09-14 13:10:00 18 /min [facility] Body height 2021-09-14 12:54:00 165.1 cm Universi ty of [place] [facility] Body weight 2021-09-14 12:54:00 74.345 kg Universi ty of [place] [facility] BMI 2021-09-14 12:54:00 27.27 kg/m2 Universi ty [facility] Branch Procedures Procedure Date / Time Performed Performing Clinician [facility] e ASSIGNMENT OF BENEFITS 2022-10-01 18:26:57 Doctor Unassigned, No [facility] Name Medical Branch REFERRAL- 2022-06-12 06:01:00 Doctor Unassigned, No [facility] REQUEST/RESPONSE Name Medical Branch EXTERNAL PROVIDER 2022-01-29 05:01:00 Doctor Unassigned, No [facility] RECORDS Name Medical Branch REFERRAL- 2022-01-01 05:01:00 Doctor Unassigned, No [facility] REQUEST/RESPONSE Name Medical Branch Encounters Start End Encounter Admission Attending Care Care Encounter Source Date/Time Date/Time Type Type Clinicians Facility Department ID 2022-10-01 2022-10-01 Office ZAIDA Thomas [id number] [facility] 13:45:00 14:00:00 Visit [facility] [id number] it y of Guero COSTELLO [id number] Roman as REFUGIO?BLEA [id number] [address] MEDICAL OFFICE [facility] 2022-10-01 2022-10-01 [facility] [id number] Univers 13:45:00 13:45:00 SIMEON itjames [facility] 2022-10-01 2022-10-01 Orders Doctor RHETT [id number] Univers 00:00:00 00:00:00 Only Unassigned, ELICEO [id number] ity of [facility] [id number] Roman as [id number] [address] 2022-09-24 2022-09-24 [facility] [id number] Univers 00:00:00 00:00:00 [facility] [id number] it y of [place] [id number] Roman as REFUGIO?BLEA [id number] [address] OFFICE [facility] 2022-09-06 2022-09-06 [facility] [id number] Univers 00:00:00 00:00:00 [facility] [id number] it y of [place] [id number] Roman as REFUGIO?BLEA [id number] [address] OFFICE [facility] 2022-08-13 2022-08-13 [facility] [id number] Univers 00:00:00 00:00:00 [facility] [id number] it y of [place] [id number] Roman as REFUGIO?BLEA [id number] [address] OFFICE [facility] 2022-07-04 2022-07-04 Outpatient TRINIDAD VEGA MDA MDA [id number] 11:03:56 11:24:13 KAT vu 2022-07-04 2022-07-04 Outpatient TRINIDAD VEGA MDA MDA [id number] SARMIENTO 09:26:54 09:26:54 KAT vu 2022-06-12 2022-06-12 Orders Doctor DELANEY 1.2.840.114 [id number] Univers 00:00:00 00:00:00 Only Unassigned, ELICEO [id number] ity of [place] [facility] [id number] Roman as [id number] [address] 2022-01-29 2022-01-29 Orders Doctor DELANEY [id number] Univers 00:00:00 00:00:00 Only Unassigned, ELICEO [id number] ity of [place] [facility] [id number] Roman as [id number] [address] 2022-01-01 2022-01-01 Orders Doctor DELANEY [id number] Univers 00:00:00 00:00:00 Only Unassigned, ELICEO [id number] ity of [place] [facility] [id number] Roman as [id number] [address] 2021-09-14 2021-09-14 [facility] [id number] Univers 08:23:47 23:59:00 [facility] 2021-09-14 2021-09-14 [facility] [id number] Univers 08:00:00 08:54:37 [facility] 2021-09-14 2021-09-14 Office [facility] [id number] Univers 08:00:00 08:54:37 Visit [facility] [id number] it y of [place] [id number] Roman as REFUGIO?BLEA [id number] Ne jennifer MAGANA [address] MEDICAL OFFICE BUILDING 2021-09-08 2021-09-08 [facility] [id number] Univers 00:00:00 00:00:00 [facility] [id number] it y of [place] [id number] Roman as REFUGIO?BLEA [phone] Ne jennifer MAGANA [address] [place] [address] MEDICAL OFFICE BUILDING 2021-09-08 2021-09-08 Orders Doctor RHETT 1.2.840.114 [id number] Univers 00:00:00 00:00:00 Only Unassigned, ELICEO [id number] ity of [place] [facility] [id number] Roman as [phone] [address] 2021-08-29 2021-08-29 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 [id number] .10 [facility] [id number] Roman as REFUGIO?BLEA [phone] Ne jennifer MAGANA 353 [facility] 2021-08-29 2021-08-29 Outpatient Jamila THOMAS [facility] [id number] [facility] 07:45:00 07:45:00 SIMEON [facility] 2021-08-17 2021-08-17 Office [facility] [id number] [facility] 08:45:00 09:00:00 Visit Simeon [facility] [id number] it y of Edmario alberto [facility] [id number] Roman as REFUGIO?BLEA [phone] Ne jennifer MAGANA 044 [facility] 2021-08-17 2021-08-17 Outpatient R WILLIAM [facility] [id number] Univers 08:45:00 08:45:00 SIMEON teran [facility] 2021-08-17 2021-08-17 Outpatient Jamila MASTERS [facility] [id number] Univers 08:00:00 08:21:25 JAY [facility] 2021-08-17 2021-08-17 Office [facility] [id number] Univers 08:00:00 08:21:25 Visit [facility] [id number] it y [facility] [id number] Roman as REFUGIO?BLEA [phone] Ne jennifer MAGANA [address] [facility] OFFICE [facility] 2021-08-17 2021-08-17 [facility] [id number] Univers 08:00:00 08:21:25 JAY teran [facility] 2021-08-16 2021-08-16 Outpatient R [facility] [id number] Univers 14:30:00 14:30:00 JAY teran [facility] 2021-08-09 2021-08-09 Outpatient R [facility] [id number] Univers 13:45:00 14:10:52 JAYMARIMAR teran [facility] 2021-08-09 2021-08-09 Office [facility] [id number] Univers 13:45:00 14:10:52 Visit Jay L HEALTH 350.1.13.10 it y of [place] 4.2.7.2.686 Roman as REFUGIO?BLEA [phone] Ne mattiewoo RONNIEDANIEL [address] [facility] OFFICE [facility] 2021-08-08 2021-08-08 Out[facility] [id number] Univers 11:27:51 23:59:00 MARÍA itjames [facility] 2021-08-08 2021-08-08 [facility] 1..840.114 [id number] Univers 11:27:51 23:59:00 Encounter María HEALTH [id number] ity of [place] 4.2.7.2.686 Roman as REFUGIO?BLEA [phone] Ne mattiewoo YAHAIRA [address] [facility] OFFICE [facility] 2021-07-16 2021-07-16 [facility] [id number] Univers 00:00:00 00:00:00 Simeon HEALTH [id number] it y of [place] 4.2.7.2.686 Roman as PROFESSIO [phone] Ne jennifer PRIETO [address] [facility] 2021-06-22 2021-06-22 [facility] [id number] Univers 00:00:00 00:00:00 Simeon HEALTH [id number] it y of [place] 4.2.7.2.686 Roman as PROFESSIO [phone] Ne jennifer PRIETO [address] [place] [address] OFFICE [facility] 2021-06-08 2021-06-08 Outpatient TRINIDAD VEGA MDA MDA [id number] 11:23:08 13:48:45 KAT Toño vu 2021-06-08 2021-06-08 Outpatient TRINIDAD HERRING MDA [id number] 10:11:29 10:11:29 Toño vu 2021-03-01 2021-03-01 Telephone [facility] [id number] Univers 00:00:00 00:00:00 [facility] [id number] it y of [place] [id number] Roman as Refugio?Blea [phone] Ne dical yahaira [address] [place] [address] Office [facility] 2021-03-01 2021-03-01 Orders Doctor RHETT [id number] Univers 00:00:00 00:00:00 Only Unassigned, ELICEO [id number] ity of [place] [facility] 4.2.7.2.686 Roman as [phone] [address] 2020-07-16 2020-07-16 Outpatient [facility] [id number] Univers 08:55:00 08:55:00 ity of [facility] 2020-06-18 2020-06-18 Outpatient [facility] [id number] Univers 08:40:00 08:40:00 ity of [facility] 2020-03-30 2020-03-30 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 [id number] [id number] Univers 08:33:57 09:02:23 Visit MikeminalSimeon [facility] 350.1.13 .10 ity of [place] 4.2.7.2.686 Roman as Professio [phone] Ne jennifer prieto [address] [place] [address] Office [facility] One 2020-03-30 2020-03-30 Office William [facility] 1.2.840.114 [id number] Univers 08:08:45 08:23:[address] [facility] [id number] it y of [place] 4.2.7.2.686 Roman as Professio [phone] [facility] [address] 2020-03-30 2020-03-30 Outpatient R MIKEMINAL [facility] [id number] Univers 08:15:00 08:15:00 [facility] 2019-01-01 2019-01-01 Refill William [facility] [id number] Univers 00:00:00 00:00:00 [facility] [id number] it y of [place] 4.2.7.2.686 Roman as Noé [phone] [facility] [address] [facility] Results This patient has no known results.
[2022-12-10 19:51] LABS: Absolute Lymphocytes (CBC) 2.7 K/uL (0.7-4.9); Hematocrit 41.8 % (36.0-45.0); Lymphocytes % 35.7 % (15.3-44.8); MCV 92.6 fL (80-100); MPV 10.9 fL (7.6-11.3); RBC Red Blood Cell Count 4.52 M/uL (3.86-4.86)
[2022-12-10] MEDS ORDERED: DIAZEPAM 5 MG TABLET ONE (19:54)
[2022-12-10 20:38] LABS: Albumin 3.7 g/dL (3.4-5.0); Bilirubin Total 0.3 mg/dL (0.2-1.0); Potassium 3.5 mEq/L (3.5-5.1); Protein, Total 6.9 g/dL (6.4-8.2); Troponin High Sensitivity 6.1 pg/mL (<58.9)
--- NOTE | 2022-12-10 20:44 | ER ---
Nurse's Notes [facility] Name: Toya Thompson Age: 67 yrs Sex: Female : 1955 Arrival Date: 12/10/2022 Time: 18:43 Bed DIS3 Private MD: Robin Saldaña Diagnosis: Essential (primary) hypertension;Paresthesia of skin Presentation: 12/10 18:58 Chief complaint: Patient states: that for the last week her BP has been elevated but cm10 today she felt flush and took her BP and it was 185/105. Pt reports headache. Pt rates headache 2/10. Pt also reports left arm numbness that is intermittent. Coronavirus screen: Vaccine status: Patient reports receiving the 2nd dose of the covid vaccine. Ebola Screen: No symptoms or risks identified at this time. Initial Sepsis Screen: Does the patient meet any 2 criteria? No. Patient's initial sepsis screen is negative. Initial Sepsis Screen: Does the patient have a suspected source of infection? No. Patient's initial sepsis screen is negative. Risk Assessment: Do you want to hurt yourself or someone else? Patient reports no desire to harm self or others. Onset of symptoms was December 10, 2022. 18:58 Method Of Arrival: Ambulatory cm10 18:58 Acuity: SHIV 3 cm10 Triage Assessment: 19:03 General: Appears in no apparent distress. comfortable, Behavior is calm, cooperative. cm10 Pain: Complains of pain in head Pain does not radiate. Pain currently is 2 out of 10 on a pain scale. Quality of pain is described as aching. Neuro: No deficits noted. Level of Consciousness is awake, alert, obeys commands, Oriented to person, place, time, situation. Respiratory: No deficits noted. Airway is patent Respiratory effort is even, unlabored, Respiratory pattern is regular, symmetrical. Historical: - Allergies: 19:01 No Known Allergies; cm10 - Home Meds: 19:01 valsartan 320 mg oral tablet daily [Active]; carvedilol 12.5 mg oral tablet 2 times per cm10 day [Active]; amlodipine 10 mg tablet daily [Active]; atorvastatin 10 mg oral tablet daily [Active]; sertraline 50 mg oral tablet [Active]; - PMHx: 19:02 Hypertensive disorder; high cholesterol; cm10 - Immunization history:: Adult Immunizations unknown. - Social history:: Smoking status: Patient denies any tobacco usage or history of. Screenin:51 [facility] ED Fall Risk Assessment (Adult) Score/Fall Risk Level 0 - 2 = Low Risk. Abuse as6 screen: Denies threats or abuse. Denies injuries from another. Nutritional screening: No deficits noted. Tuberculosis screening: No symptoms or risk factors identified. Vital Signs: 18:58 BP 173 / 104; Pulse 64; Resp 18; Temp 99(O); Pulse Ox 98% ; Weight 73.94 kg; Height 5 cm10 ft. 5 in. ; Pain 2/10; 20:00 BP 141 / 73; Pulse 56; Resp 18 S; Pulse Ox 97% on R/A; as6 18:58 Body Mass Index 27.12 (73.94 kg, 165.1 cm) cm10 18:58 Pain Scale: Adult cm10 ED Course: 18:48 Patient arrived in ED. am2 18:48 Robin Saldaña MD is Private Physician. am2 19:00 Triage completed. cm10 19:04 Arm band placed on Patient placed in waiting room. cm10 19:08 Modesto Patel MD is Attending Physician. jr11 19:43 Inserted saline lock: 20 gauge in left antecubital area, using aseptic technique. Blood as6 collected. 20:51 Bed in low position. Call light in reach. Provided Education on: discharge teaching. as6 20:51 No provider procedures requiring assistance completed. IV discontinued, intact, as6 bleeding controlled, No redness/swelling at site. Pressure dressing applied. Administered Medications: 20:01 Drug: Diazepam PO 2.5 mg Route: PO; as6 20:50 Follow up: Response: No adverse reaction as6 Medication: 20:51 VIS not applicable for this client. as6 Outcome: 20:43 Discharge ordered by . jr11 20:51 Discharged to home ambulatory. as6 20:51 Condition: stable 20:51 Discharge instructions given to patient, Instructed on discharge instructions, follow up and referral plans. Demonstrated understanding of instructions, follow-up care. 20:52 Patient left the ED. as6 Signatures: Sharon Rivero am2 Chepe Faith RN RN as6 Modesto Patel MD MD jr11 Jillian Nichole RN RN cm10 Corrections: (The following items were deleted from the chart) 19:04 18:58 Chief complaint: Patient states: that for the last week her BP has been elevated cm10 but today she felt flush and took her BP and it was 185/105. Pt reports headache. Pt rates headache 06/22. cm10
--- NOTE | 2022-12-10 20:44 | EDPHYS ---
Physician Documentation [facility] Name: Toya Thompson Age: 67 yrs Sex: Female : 1955 Arrival Date: 12/10/2022 Time: 18:43 Bed DIS3 Private MD: Robin Saldaña ED Physician Modesto Patel HPI: 12/10 19:20 Patient is a 67-year-old that has been struggling keeping her blood pressure down. jr11 Patient states she stood up had a hot feeling sensation throughout her body some tingling in her left arm, denies chest pain. Denies exertional pain, no tearing pain, does not radiate to the back, does not cross the diaphragm. No diaphoresis, no vomiting. No syncope or near-syncope. Patient got worried because her pressure went to 180s so she decided to come in for evaluation.. Historical: - Allergies: 19:01 No Known Allergies; cm10 - Home Meds: 19:01 valsartan 320 mg oral tablet daily [Active]; carvedilol 12.5 mg oral tablet 2 times per cm10 day [Active]; amlodipine 10 mg tablet daily [Active]; atorvastatin 10 mg oral tablet daily [Active]; sertraline 50 mg oral tablet [Active]; - PMHx: 19:02 Hypertensive disorder; high cholesterol; cm10 - Immunization history:: Adult Immunizations unknown. - Social history:: Smoking status: Patient denies any tobacco usage or history of. ROS: 19:20 All other systems are negative. jr11 Exam: 19:20 Constitutional: This is a well developed, well nourished patient who is awake, alert, jr11 and in no acute distress. Head/Face: Normocephalic, atraumatic. Eyes: Extra-ocular motions intact. Lids and lashes normal. Conjunctiva and sclera are non-icteric and not injected. Cornea within normal limits. Periorbital areas with no swelling, redness, or edema. ENT: Nares patent. No nasal discharge, no septal abnormalities noted. Oropharynx with no redness, swelling, or masses, exudates, or evidence of obstruction, uvula midline. Mucous membranes moist. Neck: Trachea midline, no thyromegaly or masses palpated, and no cervical lymphadenopathy. Supple, full range of motion without nuchal rigidity, or vertebral point tenderness. No Meningismus. Chest/axilla: Normal chest wall appearance and motion. Nontender with no deformity. No lesions are appreciated. Cardiovascular: Regular rate and rhythm with a normal S1 and S2. No gallops, murmurs, or rubs. Normal PMI, no JVD. No pulse deficits. Respiratory: Lungs have equal breath sounds bilaterally, clear to auscultation and percussion. No rales, rhonchi or wheezes noted. No increased work of breathing, no retractions or nasal flaring. Abdomen/GI: Soft, non-tender, with normal bowel sounds. No distension or tympany. No guarding or rebound. No evidence of tenderness throughout. MS/ Extremity: Pulses equal, no cyanosis. Neurovascular intact. Full, normal range of motion. Neuro: Awake and alert, GCS 15, oriented to person, place, time, and situation. No gross motor or sensory deficits. Vital Signs: 18:58 BP 173 / 104; Pulse 64; Resp 18; Temp 99(O); Pulse Ox 98% ; Weight 73.94 kg; Height 5 cm10 ft. 5 in. ; Pain 2/10; 20:00 BP 141 / 73; Pulse 56; Resp 18 S; Pulse Ox 97% on R/A; as6 18:58 Body Mass Index 27.12 (73.94 kg, 165.1 cm) cm10 18:58 Pain Scale: Adult cm10 MDM: 19:19 Patient medically screened. [facility] 19:20 Differential diagnosis: Patient is a 67-year-old with uncontrolled hypertension, jr11 episode of what she describes as a hot flash, may be hormonal in nature. We will do EKG, rule out ACS. Denies any chest pain. Given her asymptomatic hypertension, will look for endorgan dysfunction, if work-up is benign, would recommend blood pressure check twice a day, keeping a log for 1 week and taking it to primary care doctor. 20:31 Data reviewed: vital signs, nurses notes. ED course: EKG interpreted by me shows normal [facility] sinus rhythm, normal axis, normal intervals, no acute ST changes nonspecific T wave inversion in V3.. 20:42 ED course: Blood pressure 130/70, still back to baseline, will keep a blood pressure [facility] log, follow-up as needed. No sign of endorgan dysfunction patient comfortable going home, ER warnings given all results explained.. 12/10 19:20 Order name: CBC with Diff; Complete Time: 20:04 [facility] 12/10 19:20 Order name: Troponin HS; Complete Time: 20:40 [facility] 12/10 19:20 Order name: CMP; Complete Time: 20:40 [facility] 12/10 19:20 Order name: EKG; Complete Time: 19:21 [facility] 12/10 19:20 Order name: Cardiac monitoring [facility] 12/10 19:20 Order name: EKG - Nurse/Tech; Complete Time: 20:19 [facility] 12/10 19:20 Order name: IV Saline Lock; Complete Time: 19:43 [facility] 12/10 19:20 Order name: Labs collected and sent; Complete Time: 19:43 [facility] 12/10 19:20 Order name: O2 Per Protocol [facility] 12/10 19:20 Order name: O2 Sat Monitoring [facility] Administered Medications: 20:01 Drug: Diazepam PO 2.5 mg Route: PO; as6 20:50 Follow up: Response: No adverse reaction as6 Disposition Summary: 12/10/22 20:43 Discharge Ordered Location: Home [facility] Condition: Stable [facility] Diagnosis - Essential (primary) hypertension jr11 - Paresthesia of skin jr11 Followup: jr11 - With: Private Physician - When: 1 week - Reason: Recheck today's complaints, Continuance of care Discharge Instructions: - Discharge Summary Sheet [facility] - Hypertension, Adult jr11 - Paresthesia, [id number] jr - Managing Your Hypertension [facility] - Form - Blood Pressure Record Sheet [facility] Forms: - Medication Reconciliation Form [facility] - Thank You Letter 11 - Antibiotic Education 11 - Prescription Opioid Use jr - Patient Portal Instructions [facility] Signatures: Dispatcher [employer] Chepe Valdes RN RN as6 Modesto Patel MD MD jr11 Jillian Nichole RN RN cm10
[2022-12-10 21:29] VITALS: TEMP 99
[2022-12-10 21:31] VITALS: BP 141/73; O2SAT 97
--- NOTE | 2022-12-12 17:40 | EKG ---
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
== END 2022-12-10 20:52 | disposition home or self-care (01) ==
LOC: ER 18:43
DX: I10 Essential (primary) hypertension (principal); R20.2 Paresthesia of skin; E78.00 Pure hypercholesterolemia, unspecified
CPT/HCPCS: 36415; 80053; 84484; 85025; 93005; 99284